=== PATIENT | female | born 1990 | race Caucasian/White ===

== ENCOUNTER 2016-10-19 15:43 | Emergency (ER) | payer OTHER ==
[~2016-10-19 15:43] MED LIST: NORCO 5-325 TA1 EACH PO
== END 2016-10-19 17:30 | disposition home or self-care (01) ==
LOC: ER1 15:43
DX: T63.441A Toxic effect of venom of bees, accidental (unintentional), initial encounter (principal); J45.909 Unspecified asthma, uncomplicated; Z88.0 Allergy status to penicillin; Z88.5 Allergy status to narcotic agent; Z90.89 Acquired absence of other organs
CPT/HCPCS: 99282; Q0163

== ENCOUNTER 2016-11-06 15:25 | Emergency (ER) | payer OTHER | END 2016-11-06 22:47 | disposition home or self-care (01) | LOC: ER1 15:25 | DX: S46.811A Strain of other muscles, fascia and tendons at shoulder and upper arm level, right arm, initial encounter (principal); X58.XXXA Exposure to other specified factors, initial encounter; Y92.009 Unspecified place in unspecified non-institutional (private) residence as the place of occurrence of the external cause | CPT/HCPCS: 71020; 72040; 72125; 73030; 81001; 84703; 96372; 99283; J1885 ==

== ENCOUNTER 2020-07-24 11:44 | Emergency (ER) | payer OTHER ==
[~2020-07-24 11:44] MED LIST changes: +BENTYL 10MG CAP10 MG PO; +CYCLOBENZAPRINE10 MG PO; +IBUPROFEN800 MG PO; +LODINE CAP 300300 MG PO; +NORCO 7.5-3251 EACH PO; +NORFLEX 100 MG100 MG PO; +PREDNISONE20 MG PO; +PRINIVIL5 MG PO; +TORADOL 10 MG T10 MG PO; +VALTREX1000 MG PO; +ZITHROMAX250 MG PO; +ZOFRAN ODT 4 MG4 MG SL; +ZOFRAN4 MG PO
[2020-07-24 12:42] LABS: HEMOGLOBIN 13.2 gm/dl (12.3-15.3); RED BLOOD COUNT 5.1 M/UL (4.00-5.10); WHITE BLOOD COUNT 7.5 K/UL (4.5-11.0)
[2020-07-24 13:17] LABS: BUN/CREATININE RATIO 10 (0-10)
== END 2020-07-24 14:45 | disposition left against medical advice (07) ==
LOC: ER1 11:44
PROVIDERS: Family Medicine
DX: R07.9 Chest pain, unspecified (principal); I10 Essential (primary) hypertension; Z79.899 Other long term (current) drug therapy; Z88.5 Allergy status to narcotic agent; Z53.20 Procedure and treatment not carried out because of patient's decision for unspecified reasons
CPT/HCPCS: 71045; 80053; 82550; 82553; 83874; 84484; 85025; 85379; 93005; 99285

== ENCOUNTER → 2020-11-14 | Outpatient (CLI) | payer OTHER | LOC: RAD 16:05 | DX: M25.532 Pain in left wrist (principal) | CPT/HCPCS: 73110 ==

== ENCOUNTER → 2020-12-18 | Outpatient (CLI) | payer OTHER ==
[2020-12-18 16:01] LABS: BUN/CREATININE RATIO 12 (0-10)
[2020-12-18 16:18] LABS: HEMOGLOBIN 12.2 gm/dl (12.3-15.3); RED BLOOD COUNT 4.76 M/UL (4.00-5.10); WHITE BLOOD COUNT 8.6 K/UL (4.5-11.0)
== END ==
LOC: LAB 13:53
PROVIDERS: Physician Assistant
DX: E16.1 Other hypoglycemia (principal); E55.9 Vitamin D deficiency, unspecified; E53.8 Deficiency of other specified B group vitamins; E03.9 Hypothyroidism, unspecified; M25.562 Pain in left knee
CPT/HCPCS: 36415; 73562; 80053; 80061; 82607; 83036; 84439; 84443; 85025

== ENCOUNTER 2021-02-09 16:21 | Emergency (ER) | payer OTHER ==
[2021-02-09 19:00] LABS: HEMOGLOBIN 12.9 gm/dl (12.3-15.3); RED BLOOD COUNT 4.73 M/UL (4.00-5.10); WHITE BLOOD COUNT 9.5 K/UL (4.5-11.0)
[2021-02-09 19:48] LABS: BUN/CREATININE RATIO 7 (0-10)
[2021-02-09] MEDS ORDERED: POTASSIUM CHLO10 MEQ PO (20:55)
[2021-02-09] MEDS ORDERED: LASIX TAB 20 MG20 MG PO (20:55)
== END 2021-02-09 21:00 | disposition home or self-care (01) ==
LOC: ER1 16:21
PROVIDERS: Physician Assistant
DX: R60.0 Localized edema (principal); I10 Essential (primary) hypertension; Z90.49 Acquired absence of other specified parts of digestive tract; Z88.5 Allergy status to narcotic agent; Z79.899 Other long term (current) drug therapy; Z90.89 Acquired absence of other organs
CPT/HCPCS: 71046; 80053; 81001; 82550; 82553; 83874; 83880; 84439; 84443; 84484; 84703; 85025; 85379; 93005; 99285

== ENCOUNTER 2021-03-10 16:39 | Emergency (ER) | payer OTHER ==
[~2021-03-10 16:39] MED LIST changes: +LASIX TAB 20 MG20 MG PO; +POTASSIUM CHLO10 MEQ PO
[2021-03-10 19:56] LABS: HEMOGLOBIN 12.7 gm/dl (12.3-15.3); RED BLOOD COUNT 4.66 M/UL (4.00-5.10); WHITE BLOOD COUNT 7.4 K/UL (4.5-11.0)
[2021-03-10 20:28] LABS: BUN/CREATININE RATIO 10 (0-10)
[2021-03-11] MEDS ORDERED: BENTYL 20MG TAB20 MG PO (01:04)
[2021-03-11] MEDS ORDERED: REGLAN10 MG PO (01:04)
== END 2021-03-11 01:06 | disposition home or self-care (01) ==
LOC: ER1 16:39
PROVIDERS: Physician Assistant
DX: R11.0 Nausea (principal); M25.551 Pain in right hip; R10.811 Right upper quadrant abdominal tenderness; R10.813 Right lower quadrant abdominal tenderness; I10 Essential (primary) hypertension; Z20.822 Contact with and (suspected) exposure to COVID-19; Z90.49 Acquired absence of other specified parts of digestive tract; Z88.5 Allergy status to narcotic agent
CPT/HCPCS: 80053; 81001; 83690; 84703; 85025; 87086; 99284; U0002

== ENCOUNTER → 2021-06-16 | Outpatient (CLI) | payer OTHER ==
[~2021-06-16] MED LIST changes: +BENTYL 20MG TAB20 MG PO; +REGLAN10 MG PO
== END ==
LOC: KOH-I 06-15 11:30
DX: J01.81 Other acute recurrent sinusitis (principal)
CPT/HCPCS: 70486

== ENCOUNTER 2021-10-23 12:25 | Emergency (ER) | payer OTHER ==
[2021-10-23 13:40] LABS: HEMOGLOBIN 12.5 gm/dl (12.3-15.3); RED BLOOD COUNT 4.72 M/UL (4.00-5.10); WHITE BLOOD COUNT 7.8 K/UL (4.5-11.0)
[2021-10-23 14:03] LABS: BUN/CREATININE RATIO 10 (0-10)
[2021-10-23] MEDS ORDERED: CEPHALEXIN500 M1 PO (16:52)
== END 2021-10-23 17:03 | disposition home or self-care (01) ==
LOC: ER1 12:25
PROVIDERS: Physician Assistant
DX: R60.0 Localized edema (principal); I10 Essential (primary) hypertension; Z88.5 Allergy status to narcotic agent
CPT/HCPCS: 71045; 80053; 81001; 82550; 82553; 83880; 84484; 85025; 85379; 85652; 86140; 93005; 96372; 99284; J1885

== ENCOUNTER → 2022-03-08 | Outpatient (CLI) | payer OTHER ==
[~2022-03-08] MED LIST changes: +CEPHALEXIN500 M1 PO
== END ==
LOC: RAD 15:43
DX: B97.21 SARS-associated coronavirus as the cause of diseases classified elsewhere (principal)
CPT/HCPCS: 71046